=== PATIENT | female | born 1955 | race Caucasian/White ===

== ENCOUNTER → 2016-11-30 | Outpatient (CLI) | payer BC | LOC: US 14:41 | DX: E04.1 Nontoxic single thyroid nodule (principal) | CPT/HCPCS: 76536 ==

== ENCOUNTER → 2020-09-26 | Outpatient (CLI) | payer MEDICARE ==
[~2020-09-26] MED LIST: AMBIEN5 MG PO; ATORVASTATIN CA40 MG PO; CATAPRES-TTS 31 EACH TP; CITALOPRAM HBR20 MG PO; FISH OIL PO; GLIMEPIRIDE4 MG PO; GLUCOPHAGE XR500 MG PO; HERBAL LAXATIVE PO; LOTREL 10-40 M1 EACH PO; METFORMIN HCL1000 M1 PO; METOPROLOL SUCC50 MG PO; MIRALAX17 GM PO; MULTI VIT PO; NAPROSYN500 MG PO; NORCO 7.5-3251 EACH PO; PHARBETOL500 MG PO; PROBIOTIC1 EAC2 PO; PROTONIX 40 MG40 M1 PO; TRAZODONE HCL50 MG PO; TRIAMTERENE-HC1 EAC3 PO; TRULICITY0.75 MG/0. SQ; TRULICITY1.5 MG/0.5 SC; TYLENOL PO
== END ==
LOC: KOH-I 09-10 15:30
DX: E04.1 Nontoxic single thyroid nodule (principal)
CPT/HCPCS: 76536

== ENCOUNTER → 2021-09-08 | Outpatient (CLI) | payer MEDICARE | LOC: KOH-I 13:33 | DX: E04.1 Nontoxic single thyroid nodule (principal) | CPT/HCPCS: 76536 ==